=== PATIENT | male | born 1960 | race Caucasian/White ===

== ENCOUNTER 2017-04-15 10:43 | Emergency (ER) | payer OTHER ==
[~2017-04-15] VITALS: Ht 170.2 cm; Wt 81.6 kg
[~2017-04-15 10:43] MED LIST: AUGMENTIN 500M500 MG PO; DULERA1 AR1 INH; E-400400 IU PO; LEVSIN/SL0.125 MG PO; LISINOPRIL10 MG PO; NORVASC 5MG TAB5 MG PO; PERCOCET 325 MG1 TA2 PO; PREDNISONE10 MG PO; PROAIR HFA0.09 MG/Ac; TRAMADOL50 MG PO
--- NOTE | 2017-04-15 10:57 | ED GENERAL ADULT ---
See Addendum History of Present Illness General Chief Complaint: Chest Pain Stated Complaint: CP Source: patient Exam Limitations: poor historian Vital Signs & Intake/Output Vital Signs & Intake/Output Vital Signs Date Time Temp Pulse Resp B/P B/P Pulse O2 O2 Flow FiO2 Mean Ox Delivery Rate 04/15 1642 98.2 101 18 155/86 96 Room Air 04/15 1449 98.7 100 18 159/96 97 Room Air 04/15 1359 106 20 168/96 98 Room Air 04/15 1358 106 20 168/96 04/15 1202 120 20 146/115 04/15 1107 98 04/15 1055 119 20 161/121 97 Room Air Room Air Allergies Coded Allergies: lisinopril (Intermediate, ANGIODEMA 04/15/17) Reconcile Medications Albuterol Sulfate (Proair Hfa) 0.09 MG/Actuation ROQUE UNKNOWN (Reported) Amlodipine (Norvasc 5MG Tab) 5 MG TAB 1 TAB PO DAILY HEART (Reported) Augmentin (Augmentin 500-125 Tablet) 500 MG TAB 1 TAB PO Q8 PNEUMONIA MOMETASONE/FORMOTEROL (Dulera 200 Mcg/5 Mcg Inhaler) 200 MCG-5 MCG/ACTUATION HFA.AER.AD 2 PUF INH BID BREATHING PROBLEMS (Reported) Prednisone 10 MG TAB 0 TAB PO DAILY BREATHING PROBLEMS, ALLERGY 4 TABS DAILY FOR ONE DAY 3 TABS DAILY X 2 DAYS 2 TABS DAILY X 2 DAYS 1 TAB DAILY X 2 DAYS 1/2 TAB DAILY X 1 DAYS THEN STOP Vitamin E (E-400) 400 IU SGL 1 SGL PO DAILY SUPPLEMENT (Reported) Triage Note: PT TO ED FOR C/C OF L SIDED CHEST PAIN AND ABD PAIN THAT STARTED YESTERDAY. PT WOKE UP WITH SEVERE CHEST PAIN, NAUSEA, AND SOB. L ARM TINGLING ASSOCIATED WITH CP. PT VERY SHAKY ON ARRIVAL. REPORTS HE DRINKS 4 NIPS OF ALCOHOL A DAY. LAST DRINK WAS 1PM LAST NIGHT. Triage Nurses Notes Reviewed? yes Onset: Abrupt Duration: day(s): Timing: recent history HPI: 04/15/17 56-year-old man presents to the emergency department for chest pain and difficulty breathing. He said the symptoms started earlier today. He says he does drink alcohol. He says his last drink was yesterday. He says he is also had chronic abdominal distention. He does admit to abdominal pain. Past History Travel History Traveled to [place] past 21 day No Medical History Any Pertinent Medical History? see below for history Cardiovascular: hypertension, hyperlipidemia Respiratory: asthma Psychiatric: alcohol dependence, cocaine abuse History of MRSA: No History of VRE: No History of CDIFF: No Pneumonia Vaccine: 03/03/15 Surgical History Surgical History: non-contributory Psychosocial History Who do you live with Significant Other Services at Home None What is your primary language [place] Tobacco Use: Current Daily Use Daily Tobacco Use Amount/Type: => 5 Cigarettes daily ETOH Use: heavy use Illicit Drug Use: denies illicit drug use Family History Hx Contributory? No Review of Systems Review of Systems Constitutional: Denies: fever. EENTM: Reports: no symptoms. Respiratory: Reports: short of breath. Cardiovascular: Reports: chest pain. GI: Reports: abdominal pain. Genitourinary: Reports: no symptoms. Musculoskeletal: Reports: no symptoms. Skin: Reports: no symptoms. Neurological/Psychological: Reports: no symptoms. Hematologic/Endocrine: Reports: no symptoms. Immunologic/Allergic: Reports: no symptoms. Physical Exam Physical Exam General Appearance: awake, anxious, moderate distress Head: atraumatic, normal appearance Ears, Nose, Throat: normal pharynx Neck: normal inspection, supple, full range of motion Respiratory: normal breath sounds, chest non-tender, no respiratory distress Cardiovascular: regular rate/rhythm Peripheral Pulses: 4+ radial (R), 4+ radial (L) Gastrointestinal: soft, non-tender, DISTENTION Back: decreased range of motion Extremities: pedal edema Neurologic/Psych: awake, alert, oriented x 3 Skin: intact, normal color, warm/dry Core Measures ACS in differential dx? Yes CVA/TIA Diagnosis: No Sepsis Present: No Sepsis Focused Exam Completed? No Progress Differential Diagnoses I considered the following diagnoses in my evaluation of the patient: [Alcohol withdrawal, pulmonary embolism, acute coronary syndrome, cocaine abuse, pancreatitis, cirrhosis, spontaneous bacterial peritonitis] Plan of Care: Orders Procedure Date/time Status Add-on Test (ER Only) 04/15 1146 Active URINE DRUG SCREEN FOR ER ONLY 04/15 1146 Complete URINALYSIS 04/15 1146 Complete TROPONIN LEVEL 04/15 1146 Complete LIPASE 04/15 1146 Complete ETHANOL 04/15 1146 Complete D-DIMER 04/15 1146 Complete COMPREHENSIVE METABOLIC PANEL 04/15 1146 Complete CBC WITHOUT DIFFERENTIAL 04/15 1146 Complete EKG 04/15 1046 Active Laboratory Tests 04/15/17 1352: Urine Opiates Screen < 100.00, Methadone Screen < 40, Barbiturate Screen < 60, Ur Phencyclidine Scrn < 6.00, Amphetamines Screen < 100, U Benzodiazepines Scrn < 85, Urine Cocaine Screen < 50, Urine Cannabis Screen < 5.00, Urine Color YEL, Urine Clarity CLEAR, Urine pH 8.0, Ur Specific Orting 1.010, Urine Protein NEG, Urine Ketones NEG, Urine Nitrite NEG, Urine Bilirubin NEG, Urine Urobilinogen 0.2, Ur Leukocyte Esterase NEG, Ur Microscopic EXAM NOT REQUIRED, Urine Hemoglobin NEG, Urine Glucose NEG 04/15/17 1159: Anion Gap 16, Estimated GFR > 60, BUN/Creatinine Ratio 10.0, Glucose 128 H, Calcium 9.1, Total Bilirubin 0.9, AST 83 H, ALT 81 H, Alkaline Phosphatase 143 H, Troponin I < 0.01, Total Protein 7.4, Albumin 4.5, Globulin 2.9, Albumin/ Globulin Ratio 1.6, Lipase 372 H, D-Dimer High Sensitivty < 200, CBC w Diff NO MAN DIFF REQ, RBC 5.08, MCV 92.3, MCH 31.2 H, MCHC 33.8, RDW 12.9, MPV 8.3, Gran % 75.0, Lymphocytes % 12.9 L, Monocytes % 11.7 H, Eosinophils % 0.1, Basophils % 0.3, Absolute Granulocytes 5.3, Absolute Lymphocytes 0.9 L, Absolute Monocytes 0.8 H, Absolute Eosinophils 0, Absolute Basophils 0, Serum Alcohol < 10.0 Initial ED EKG: NSR, nonspecific ST T wave chg, OLD INF WALL HI Prior EKG: unchanged Departure Departure Disposition: STILL A PATIENT Condition: Stable Clinical Impression Primary Impression: Chest pain Referrals: Ilan HICKMAN,Michael Phillips (PCP/Family) Departure Forms: Customer Survey General Discharge Information Comments CT ABD RESULTS BELOW: PATIENT: JAG MCKEON PRESENT AGE: 56 PATIENT ACCOUNT NO: [id number] : 62 LOCATION: [facility] ORDERING PHYSICIAN: Eusebio Villafana DO SERVICE DATE: 04/15/17-1145 EXAM TYPE: CAT - CT ABD & PELVIS W IV CONTRAST EXAMINATION: CT ABDOMEN AND PELVIS WITH CONTRAST CLINICAL INFORMATION: Abdominal pain. COMPARISON: CT of the abdomen done on 11/06/2014. TECHNIQUE: Multidetector volumetric imaging was performed of the abdomen and pelvis following IV administration of 95 mL of Optiray 350 intravenous contrast. Sagittal and coronal reformatted images were obtained on the technologist's workstation. DLP: 464.38 mGy-cm FINDINGS: LUNG BASES: Hypoventilatory changes are noted at both lung bases. LIVER, GALLBLADDER, AND BILIARY TREE: Diffuse hepatic hypodensity consistent with moderate to severe hepatic steatosis is noted. The portal and hepatic veins are patent. There is a 6 mm intraluminal hyperdensity noted near the neck of the gallbladder, consistent with a gallbladder calculus, unchanged. There is no intrahepatic or extrahepatic biliary ductal dilatation present. PANCREAS: Unremarkable. SPLEEN: Unremarkable. ADRENAL GLANDS: Unremarkable. KIDNEYS AND URETERS: The kidneys are normal in size, shape, and attenuation. No hydronephrosis, hydroureter, or calculi seen. No perinephric stranding. Sub-5 mm cortical renal cysts are noted at the superolateral and inferolateral cortex of the left kidney. BLADDER: Unremarkable. GASTROINTESTINAL TRACT: The small and large bowel are unremarkable. The appendix is not visualized. ABDOMINAL WALL: Postsurgical changes of prior left inguinal hernia repair is noted without any residual or recurrent disease. LYMPH NODES: Normal. VASCULAR: Mild atherosclerotic disease is noted within the aorta and its branches. PELVIC VISCERA: There is no pelvic mass present. There is no free fluid and/or free air present. OSSEOUS STRUCTURES: No suspicious lytic or sclerotic abnormalities. IMPRESSION: 1. No acute intra-abdominal and/or intrapelvic pathology is present. 2. Persistent stable diffuse hepatic steatosis. 3. Stable subcentimeter gallstone without any CT features of superimposed acute cholecystitis or biliary obstruction. 4. Stable postsurgical changes of prior left inguinal hernia repair without evidence of residual or recurrent herniation. DICTATED BY: Franky Mars MD DATE/TIME DICTATED:04/15/171316 PIECE WORK CHECKER:JOEY DATE/TIME TRANSCRIBED:04/15/171316 CONFIDENTIAL, DO NOT COPY WITHOUT APPROPRIATE AUTHORIZATION. <Electronically signed in Other Vendor System> SIGNED BY: Franky Mars MD 04/15/17 1355 CXR NEGATIVE Critical Care Note Critical Care Note Critical Care Time: 30-74 min Comments: The patient was treated with IV fluids and IV Ativan. Serial troponins were obtained.
[2017-04-15 12:11] LABS: ABSOLUTE BASOPHIL COUNT 0 /CUMM (0.0-0.2); ABSOLUTE EOSINOPHIL COUNT 0 /CUMM (0.0-0.7); ABSOLUTE GRANULOCYTE CT 5.3 /CUMM (1.4-6.5); ABSOLUTE LYMPH COUNT 0.9 /CUMM (1.2-3.4); ABSOLUTE MONOCYTE COUNT 0.8 /CUMM (0.10-0.60); BASOPHIL % 0.3 % (0.0-2.0); EOSINOPHIL % 0.1 % (0-5); HEMATOCRIT 46.9 % (42-52); MEAN CORPUSCULAR HGB 31.2 PG (27.0-31.0); MEAN CORPUSCULAR HGB CONC 33.8 G/DL (33.0-37.0); MEAN CORPUSCULAR VOLUME 92.3 FL (80.0-94.0); MEAN PLATELET VOLUME 8.3 FL (7.4-10.4); PLATELET COUNT 207 /CUMM (130-400); RBC DISTRIBUTION WIDTH 12.9 % (11.5-14.5); RED BLOOD CELL CT 5.08 /CUMM (4.70-6.10)
--- NOTE | 2017-04-15 13:30 | RADIOLOGY REPORT ---
EXAMINATION: XR PORTABLE CHEST CLINICAL INFORMATION: Shortness of breath. COMPARISON: Chest done on 03/30/2015. TECHNIQUE: Portable frontal view of the chest was obtained. FINDINGS: No significant abnormality is noted involving the heart, lungs, mediastinum, bony thorax or soft tissues. IMPRESSION: Unremarkable examination.
--- NOTE | 2017-04-15 13:58 | CT SCAN REPORT ---
EXAMINATION: CT ABDOMEN AND PELVIS WITH CONTRAST CLINICAL INFORMATION: Abdominal pain. COMPARISON: CT of the abdomen done on 11/06/2014. TECHNIQUE: Multidetector volumetric imaging was performed of the abdomen and pelvis following IV administration of 95 mL of Optiray 350 intravenous contrast. Sagittal and coronal reformatted images were obtained on the technologist's workstation. DLP: 464.38 mGy-cm FINDINGS: LUNG BASES: Hypoventilatory changes are noted at both lung bases. LIVER, GALLBLADDER, AND BILIARY TREE: Diffuse hepatic hypodensity consistent with moderate to severe hepatic steatosis is noted. The portal and hepatic veins are patent. There is a 6 mm intraluminal hyperdensity noted near the neck of the gallbladder, consistent with a gallbladder calculus, unchanged. There is no intrahepatic or extrahepatic biliary ductal dilatation present. PANCREAS: Unremarkable. SPLEEN: Unremarkable. ADRENAL GLANDS: Unremarkable. KIDNEYS AND URETERS: The kidneys are normal in size, shape, and attenuation. No hydronephrosis, hydroureter, or calculi seen. No perinephric stranding. Sub-5 mm cortical renal cysts are noted at the superolateral and inferolateral cortex of the left kidney. BLADDER: Unremarkable. GASTROINTESTINAL TRACT: The small and large bowel are unremarkable. The appendix is not visualized. ABDOMINAL WALL: Postsurgical changes of prior left inguinal hernia repair is noted without any residual or recurrent disease. LYMPH NODES: Normal. VASCULAR: Mild atherosclerotic disease is noted within the aorta and its branches. PELVIC VISCERA: There is no pelvic mass present. There is no free fluid and/or free air present. OSSEOUS STRUCTURES: No suspicious lytic or sclerotic abnormalities. IMPRESSION: 1. No acute intra-abdominal and/or intrapelvic pathology is present. 2. Persistent stable diffuse hepatic steatosis. 3. Stable subcentimeter gallstone without any CT features of superimposed acute cholecystitis or biliary obstruction. 4. Stable postsurgical changes of prior left inguinal hernia repair without evidence of residual or recurrent herniation.
[2017-04-15] MEDS ORDERED: AMLODIPINE BESYL5 M1 PO (18:09)
[2017-04-15] MEDS ORDERED: LEVBID0.375 M1 PO (18:09)
[2017-04-15] MEDS ORDERED: MULTIVITAMINS1 EAC9 PO (18:10)
[2017-04-15] MEDS ORDERED: VITAMIN B-121000 MC3 PO (18:10)
[2017-04-15] MEDS ORDERED: COENZYME Q10100 M1 PO (18:10)
[2017-04-15] MEDS ORDERED: PRAVASTATIN SOD80 M2 PO (18:10)
[2017-04-15] MEDS ORDERED: PROVENTIL HFA6.7 GM INH (18:11)
[2017-04-15] MEDS ORDERED: DULERA 200 MCG/13 GM INH (18:11)
[2017-04-15 18:14] VITALS: BP 170/90
== END 2017-04-15 18:31 ==
LOC: ERH 10:43
PROVIDERS: Emergency Medicine
DX: R07.9 Chest pain, unspecified (principal)
CPT/HCPCS: 71045; 74177; 80307; 81003; 93005; 93010; 96361; 96374; 96376; G0480

== ENCOUNTER 2017-06-07 11:00 | Emergency (ER) | payer OTHER ==
[~2017-06-07] VITALS: Ht 170.2 cm; Wt 83.0 kg
[~2017-06-07 11:00] MED LIST changes: +AMLODIPINE BESYL5 M1 PO; +COENZYME Q10100 M1 PO; +DULERA 200 MCG/13 GM INH; +LEVBID0.375 M1 PO; +MULTIVITAMINS1 EAC9 PO; +PRAVASTATIN SOD80 M2 PO; +PROVENTIL HFA6.7 GM INH; +VITAMIN B-121000 MC3 PO
[2017-06-07 12:46] LABS: ABSOLUTE BASOPHIL COUNT 0 /CUMM (0.0-0.2); ABSOLUTE EOSINOPHIL COUNT 0 /CUMM (0.0-0.7); ABSOLUTE GRANULOCYTE CT 9.2 /CUMM (1.4-6.5); ABSOLUTE LYMPH COUNT 0.9 /CUMM (1.2-3.4); ABSOLUTE MONOCYTE COUNT 0.7 /CUMM (0.10-0.60); BASOPHIL % 0.2 % (0.0-2.0); EOSINOPHIL % 0.1 % (0-5); GRANULOCYTE % 85.5 % (42.2-75.2); MEAN CORPUSCULAR HGB CONC 33.1 G/DL (33.0-37.0); MEAN CORPUSCULAR VOLUME 93.6 FL (80.0-94.0); MEAN PLATELET VOLUME 7.7 FL (7.4-10.4); PLATELET COUNT 234 /CUMM (130-400); RBC DISTRIBUTION WIDTH 14.2 % (11.5-14.5); RED BLOOD CELL CT 5.23 /CUMM (4.70-6.10); WHITE BLOOD CELL COUNT 10.7 /CUMM (4.8-10.8)
--- NOTE | 2017-06-07 13:41 | ED GENERAL ADULT ---
History of Present Illness General Chief Complaint: Chest Pain Stated Complaint: BIBA CHEST PAIN Source: patient Exam Limitations: no limitations Vital Signs & Intake/Output Vital Signs & Intake/Output Vital Signs Date Time Temp Pulse Resp B/P B/P Pulse O2 O2 Flow FiO2 Mean Ox Delivery Rate 06/07 1800 148/82 06/07 1656 98.0 90 18 156/106 97 Room Air 06/07 1643 98.0 90 18 156/106 06/07 1450 98 06/07 1413 98.2 88 16 148/108 98 Room Air 06/07 1322 Room Air 06/07 1319 98.0 86 19 146/101 98 Room Air 06/07 1105 96.2 114 24 155/97 97 Room Air Room Air Allergies Coded Allergies: lisinopril (Intermediate, ANGIODEMA 04/15/17) adhesive tape (CLOTH TAPE CAUSES A BAD RASH 04/15/17) Reconcile Medications Albuterol Sulfate (Proventil Hfa) 90 MCG HFA.AER.AD 2 PUF INH Q6H PRN ASTHMA/ COPD (Reported) Amlodipine Besylate 5 MG TABLET 1 TAB PO DAILY BP (Reported) Coenzyme Q10 (Unknown Strength) CAPSULE (Unknown Dose) PO DAILY SUPPLEMENT ( Reported) Cyanocobalamin (Vitamin B-12) (Unknown Strength) TABLET (Unknown Dose) PO DAILY SUPPLEMENT (Reported) Gabapentin 300 MG CAPSULE 1 CAP PO TID gastritis/withdrawal Hyoscyamine (Levsin) 0.125 MG TABLET 1 TAB PO Q4 PRN abdominal spasms Hyoscyamine Sulfate (Levbid) 0.375 MG TAB.ER.12H 1 TAB PO BID PRN ABD CRAMPING /PAIN (Reported) Mometasone/Formoterol (Dulera 200 Mcg/5 Mcg Inhaler) 200 MCG-5 MCG/ACTUATION HFA.AER.AD 2 PUF INH BID ASTHMA/COPD (Reported) Multiple Vitamin (Multivitamins) 1 EACH TABLET 1 TAB PO DAILY SUPPLEMENT ( Reported) Pravastatin Sodium 80 MG TABLET 1 TAB PO DAILY CHOLESTEROL (Reported) Triage Note: PT TO ED WITH C/O "PAIN STARTED IN THE CHEST, GONE NOW, BUT I JUST GOT DIAGNOSE WITH IBS, I HAD DIARRHEA THE LAST COUPLE OF DAYS". PT ADMITTING TO DAILY DRINKING "4 NIPS BEFORE BED FOR SLEEP". Triage Nurses Notes Reviewed? yes Onset: Abrupt Duration: hour(s): (1) Timing: recent history Injury Environment: home Severity: severe Severity Numbers: 10 No Modifying Factors: none HPI: Patient is a 56-year-old male with history of IBS, daily smoker and drinker, history of COPD, hypertension and hyperlipidemia presenting to the emergency department via EMS transported from urgent care Center with chief complaint of epigastric abdominal pain. Patient reports that he's been doing with abdominal pain for the past several months, recently diagnosed diabetes and started on new medication but cannot recall the name. Patient was folding close getting ready to go out for the day when he started getting pain in both sides is typical for him and then he also got pain in the epigastric region which is new for him. Symptoms usually fade after 5 minutes but they lasted approximately 30 minutes. Denies any sissy shortness of breath. Denies any new cough or congestion. No sputum production. Patient denies fevers or chills but does report that sometimes sees sweaty when he wakes up. No recent travel or sick contacts. Patient reports he does have history of gallstones, was made aware that he had a complete workup TO diagnosed with IBS. Patient denies any urinary frequency, urgency or dysuria. Denies hematuria. No history kidney stones. Denies back pain. Denies shortness of breath. No palpitations. Patient also reports that he's had nausea and vomiting over the past 2-3 days with diarrhea since worse than baseline. No blood in the vomit or diarrhea. Unable to tolerate anything by mouth for the last 2 days. He however reports that he was able to have a half a bagel with bladder and a cup of juice this morning prior to onset of symptoms. Has not taken anything for the pain except for the aspirin the urgent care gave him. Patient currently has no pain in his chest. (Milagro Hoover) Past History Travel History Traveled to [place] past 21 day No Medical History Any Pertinent Medical History? see below for history Neurological: NONE EENT: NONE Cardiovascular: hypertension, hyperlipidemia Respiratory: asthma Gastrointestinal: irritable bowel syndrome Hepatic: NONE Renal: NONE Musculoskeletal: NONE Psychiatric: alcohol dependence, cocaine abuse Endocrine: NONE Blood Disorders: NONE Cancer(s): NONE IRRIGATION EQUIPMENT REMOVER/Reproductive: NONE History of MRSA: No History of VRE: No History of CDIFF: No Surgical History Surgical History: non-contributory Psychosocial History Who do you live with Significant Other Services at Home None What is your primary language Micronesian Tobacco Use: Current Daily Use Daily Tobacco Use Amount/Type: => 5 Cigarettes daily ETOH Use: heavy use Illicit Drug Use: denies illicit drug use Family History Hx Contributory? No (Milagro Hoover) Review of Systems Review of Systems Constitutional: Reports: no symptoms. Comments Review of systems: See HPI, All other systems negative. Constitutional, no chills fever or weight loss HEENT: No visual changes no sore throat no congestion Cardiovascular: No palpitation , orthopnea or ankle swelling Skin, no jaundice no rashes Respiratory: No dyspnea cough sputum or hemoptysis GI: Positive nausea, vomiting, diarrhea : No dysuria No hematuria Muscle skeletal: no back pain, no neck pain, Neurologic: No numbness no confusion, no headaches Psych: No stress anxiety or depression,. Heme/endocrine: No bruising no bleeding no polyuria or polydipsia Immunology: No splenectomy or history of AIDS (Milagro Hoover) Physical Exam Physical Exam General Appearance: well developed/nourished, no apparent distress, alert, comfortable Comments: Well-developed well-nourished person in no acute distress HEENT: Pupils equally round and reactive to light and accommodation. Nose is atraumatic. External auditory canal and Tympanic membranes clear. Pharynx normal. No swelling or edema. Neck: Supple, no lymphadenopathy, normal range of motion without pain or tenderness Back: Nontender, no CVA tenderness. Full range of motion Cardiovascular: Regular rate and rhythms no murmurs rubs or gallops, normal JVP Respiratory: Chest nontender. No respiratory distress.diffuse wheezing to auscultation bilaterally Abdomen: Soft, diffusely tender to palpation more specifically in the epigastric region with guarding, positive umbilical hernia noted. Slight ventral hernia noted that's reducible. Diffusely distended. No appreciable organomegaly. Hypoactive bowel sounds. Extremity: No edema, no calf tenderness to palpation, normal and equal pulses. Neuro: Alert oriented x3, motor sensory normal Skin: No appreciable rash on exposed skin, skin is warm and dry. Psych: Mood and affect is normal, memory and judgment is normal. Core Measures ACS in differential dx? Yes CVA/TIA Diagnosis: No Sepsis Present: No Sepsis Focused Exam Completed? No (Milagro Hoover) Progress Differential Diagnoses I considered the following diagnoses in my evaluation of the patient: Pancreatitis, dehydration, gastritis, cholecystitis, ACS, choledocholithiasis, IBS, gastroenteritis Plan of Care: Orders Procedure Date/time Status Heart Healthy Diet 06/07 D Active TROPONIN LEVEL 06/07 1630 Complete EKG 06/07 1630 Active Add-on Test (ER Only) 06/07 1403 Active Add-on Test (ER Only) 06/07 1348 Active CIWA 06/07 1348 Active Add-on Test (ER Only) 06/07 1328 Active LIPID PANEL 06/07 1235 Complete LIPASE 06/07 1235 Complete ETHANOL 06/07 1235 Complete DIRECT BILIRUBIN 06/07 1235 Complete AMYLASE 06/07 1235 Complete TROPONIN LEVEL 06/07 1124 Complete COMPREHENSIVE METABOLIC PANEL 06/07 1124 Complete CBC WITHOUT DIFFERENTIAL 06/07 1124 Complete EKG 06/07 1101 Active Laboratory Tests 06/07/17 1613: Troponin I < 0.01 06/07/17 1235: Anion Gap 17 H, Estimated GFR > 60, BUN/Creatinine Ratio 11.1, Glucose 109 H, Calcium 9.0, Total Bilirubin 1.7 H, Direct Bilirubin 1.1 H, AST 97 H, ALT 54, Alkaline Phosphatase 173 H, Troponin I < 0.01, Total Protein 8.3 H, Albumin 4.9, Globulin 3.4, Albumin/Globulin Ratio 1.4, Triglycerides 191 H, Cholesterol 193, LDL Cholesterol, Calc 96, HDL Cholesterol 59, Cholesterol/HDL Ratio 3.3, Amylase 58, Lipase 372 H, CBC w Diff MAN DIFF ORDERED, RBC 5.23, MCV 93.6, MCH 31.0, MCHC 33.1, RDW 14.2, MPV 7.7, Gran % 85.5 H, Lymphocytes % 7.9 L, Monocytes % 6.3, Eosinophils % 0.1, Basophils % 0.2, Absolute Granulocytes 9.2 H, Segmented Neutrophils 82 H, Band Neutrophils 2, Absolute Lymphocytes 0.9 L, Lymphocytes 9 L, Monocytes 7, Absolute Monocytes 0.7 H, Absolute Eosinophils 0 , Absolute Basophils 0, Platelet Estimate VERIFIED BY SMEAR, Normocytic RBCs VERIFIED, Normochromic RBCs VERIFIED, Serum Alcohol < 10.0 06/07/2017 5:16:45 PM patient wanted to try to eat, ate half a sandwich and started developing abdominal pain. Patient also reported that he has increased shakes. Patient does not drink alcohol Sunday. Does not want alcohol call detox does not report any suicidal or homicidal ideation. Patient given IV Ativan for likely alcohol withdrawal. Discussed with Dr. deal, he agrees to plan. Second troponin and EKG are unchanged. Patient feeling much improved after IV Ativan. Symptoms likely related to withdrawal. Diagnostic Imaging: Viewed by Me: Radiology Read, CT Scan. Discussed w/RAD: Radiology Read, CT Scan. Radiology Impression: PATIENT: JAG MCKEON PRESENT AGE: 56 PATIENT ACCOUNT NO: [id number] : 62 LOCATION: [facility] ORDERING PHYSICIAN: Milagro FLORES SERVICE DATE: 06/07/17 EXAM TYPE: CAT - CT ABD & PELVIS W IV CONTRAST EXAMINATION: CT ABDOMEN AND PELVIS WITH CONTRAST CLINICAL INFORMATION: 56-year-old male patient with epigastric pain. COMPARISON: CT of the abdomen and pelvis on 06/24/2014. (Cholelithiasis). CT of the abdomen on 11/06/2014. (Cholelithiasis and hepatic steatosis). CT of the abdomen and pelvis on 04/15/2017. (Cholelithiasis. Left inguinal hernia repair). TECHNIQUE: Multidetector volumetric imaging was performed of the abdomen and pelvis following IV administration of 95 mL of Optiray 320 intravenous contrast. Sagittal and coronal reformatted images were obtained on the technologist's workstation. DLP: 466 mGy-cm FINDINGS: DUMPER MOLD CLEANER: Noncontributory. LUNG BASES: The visualized lung bases are unremarkable. LIVER, GALLBLADDER, AND BILIARY TREE: Liver is enlarged and normal in shape showing diffuse decreased attenuation due to fatty infiltration. The gallbladder is normal in size containing a single 8 mm gallstone that rests near the gallbladder neck while the patient is supine. However, there is no indication of gallbladder wall edema or thickening and no pericholecystic fluid collection is seen. PANCREAS: Unremarkable. SPLEEN: Unremarkable. ADRENAL GLANDS: Unremarkable. KIDNEYS AND URETERS: The kidneys are normal in size, shape, and attenuation. No hydronephrosis, hydroureter, or calculi seen. No perinephric stranding. Tiny presumed cortical cysts are seen in both kidneys. BLADDER: Unremarkable. GASTROINTESTINAL TRACT: The small and large bowel are unremarkable. Presumably, the appendix has been removed. ABDOMINAL WALL: No significant hernia is appreciated. Surgical tacks are seen in the left inguinal region from hernia repair. LYMPH NODES: A normal sized kadeem hepatis lymph node is present. VASCULAR: Unremarkable. PELVIC VISCERA: Unremarkable. OSSEOUS STRUCTURES: Unremarkable. IMPRESSION: 1. Diffuse fatty infiltration 2. Single gallstone in the gallbladder which is otherwise unremarkable. DICTATED BY: Brad Dejesus MD DATE/TIME DICTATED:06/07/171434 CARDIAC SURGEON: JOEY DATE/TIME TRANSCRIBED:06/07/171434 CONFIDENTIAL, DO NOT COPY WITHOUT APPROPRIATE AUTHORIZATION. <Electronically signed in Other Vendor System> SIGNED BY: Brad Dejesus MD 06/07/17 1503 Initial ED EKG: NSR Prior EKG: unchanged Repeat EKG: unchanged Comments: Declines EtOH detox. Patient informed that he'll follow with PCP. Started on gabapentin. (Milagro Hoover) Departure Departure Time of Disposition: 1757 Disposition: HOME OR SELF CARE Condition: Stable Clinical Impression Primary Impression: Abdominal pain Qualifiers: Abdominal location: epigastric Qualified Code: R10.13 - Epigastric pain Secondary Impressions: Alcohol withdrawal Qualifiers: Complication of substance-induced condition: uncomplicated Qualified Code: F10.230 - Alcohol dependence with withdrawal, uncomplicated Chest pain Qualifiers: Chest pain type: unspecified Qualified Code: R07.9 - Chest pain, unspecified Hypertension Qualifiers: Hypertension type: essential hypertension Qualified Code: I10 - Essential (primary) hypertension Referrals: Ilan HICKMAN,Michael Phillips (PCP/Family) Additional Instructions: Follow-up with your dumper mold cleaner, call to make an appointment. Take gabapentin as prescribed for abdominal pain and withdrawal. Take Levsin as needed for any abdominal spasms. Increase fluids. avoid alcohol use. Departure Forms: Customer Survey General Discharge Information Prescriptions: Current Visit Scripts Gabapentin 1 CAP PO TID #30 CAP Hyoscyamine (Levsin) 1 TAB PO Q4 PRN abdominal spasms #40 TAB (Milagro Hoover) PA/MASON HELPER Co-Sign Statement Statement: ED Attending supervision documentation- x I saw and evaluated the patient. I have also reviewed all the pertinent lab results and diagnostic results. I agree with the findings and the plan of care as documented in the PA's/MASON HELPER's documentation. [] I have reviewed the ED Record and agree with the PA's/MASON HELPER's documentation. [] Additions or exceptions (if any) to the PAs/MASON HELPER's note and plan are summarized below: [] (Doe HICKMAN,Gerard) Critical Care Note Critical Care Note Critical Care Time: 30-74 min (Pretty FLORES,Milagro)
--- NOTE | 2017-06-07 14:41 | RADIOLOGY REPORT ---
EXAMINATION: XR PORTABLE CHEST CLINICAL INFORMATION: Rule out pneumonia. Cough. Wheeze. COMPARISON: Chest radiograph dated 04/15/2017. TECHNIQUE: Portable frontal view of the chest was obtained. FINDINGS: The cardiomediastinal silhouette remains similar in size and configuration. No focal consolidation. No pleural effusion. No pneumothorax. Osseous structures are grossly intact. IMPRESSION: Stable appearance of the heart and lungs. No acute disease.
--- NOTE | 2017-06-07 15:03 | CT SCAN REPORT ---
EXAMINATION: CT ABDOMEN AND PELVIS WITH CONTRAST CLINICAL INFORMATION: 56-year-old male patient with epigastric pain. COMPARISON: CT of the abdomen and pelvis on 06/24/2014. (Cholelithiasis). CT of the abdomen on 11/06/2014. (Cholelithiasis and hepatic steatosis). CT of the abdomen and pelvis on 04/15/2017. (Cholelithiasis. Left inguinal hernia repair). TECHNIQUE: Multidetector volumetric imaging was performed of the abdomen and pelvis following IV administration of 95 mL of Optiray 320 intravenous contrast. Sagittal and coronal reformatted images were obtained on the technologist's workstation. DLP: 466 mGy-cm FINDINGS: CRIMINAL JUSTICE FACULTY: Noncontributory. LUNG BASES: The visualized lung bases are unremarkable. LIVER, GALLBLADDER, AND BILIARY TREE: Liver is enlarged and normal in shape showing diffuse decreased attenuation due to fatty infiltration. The gallbladder is normal in size containing a single 8 mm gallstone that rests near the gallbladder neck while the patient is supine. However, there is no indication of gallbladder wall edema or thickening and no pericholecystic fluid collection is seen. PANCREAS: Unremarkable. SPLEEN: Unremarkable. ADRENAL GLANDS: Unremarkable. KIDNEYS AND URETERS: The kidneys are normal in size, shape, and attenuation. No hydronephrosis, hydroureter, or calculi seen. No perinephric stranding. Tiny presumed cortical cysts are seen in both kidneys. BLADDER: Unremarkable. GASTROINTESTINAL TRACT: The small and large bowel are unremarkable. Presumably, the appendix has been removed. ABDOMINAL WALL: No significant hernia is appreciated. Surgical tacks are seen in the left inguinal region from hernia repair. LYMPH NODES: A normal sized kadeem hepatis lymph node is present. VASCULAR: Unremarkable. PELVIC VISCERA: Unremarkable. OSSEOUS STRUCTURES: Unremarkable. IMPRESSION: 1. Diffuse fatty infiltration 2. Single gallstone in the gallbladder which is otherwise unremarkable.
[2017-06-07] MEDS ORDERED: GABAPENTIN300 M2 PO (17:54)
[2017-06-07] MEDS ORDERED: LEVSIN0.125 M1 PO (17:55)
[2017-06-07 18:00] VITALS: BP 148/82
== END 2017-06-07 17:57 ==
LOC: ERH 11:00
PROVIDERS: Physician Assistant Medical
DX: R10.13 Epigastric pain (principal); R07.9 Chest pain, unspecified; I10 Essential (primary) hypertension; F10.239 Alcohol dependence with withdrawal, unspecified; F17.210 Nicotine dependence, cigarettes, uncomplicated; E11.9 Type 2 diabetes mellitus without complications; J44.9 Chronic obstructive pulmonary disease, unspecified
CPT/HCPCS: 1263; 71045; 74177; 93005; 93010; 96361; 96374; 96375; G0480; J2765